=== PATIENT | male | born 1945 ===

== ENCOUNTER → 2018-03-14 10:02 | Day surgery (SDC) | payer MEDICARE ==
[~2018-03-14 10:02] MED LIST: Acetaminophen TAB* 325 MG PO PRN; Buffered Lidocaine 0.9% SYRIN* 5 ML/SYR SYRINGE ONE; Bupivacaine 0.25% SDV* 30 ML ONE; Ibuprofen TAB* 600 MG PO PRN; Lidocain 1% EPI 1:100,000 * 30 ML MDV ONE; Midazolam* 1 MG/ML 5 ML VIAL (5 MG) ONE; Mineral Oil Sterile, TOPICAL* 25 ML BTL ONE; Naloxone* 0.4 MG/ML 1 ML VIAL IV PRN; ceFAZolin 2 GM PREMIX (*) 2 GM/50 ML BAG IVPB ONE; fentaNYL* 50 MCG/ML 2 ML VIAL (100 MCG VIAL) ONE; oxyCODONE TAB* 5 MG TAB PO PRN
[2018-03-14] MEDS: Buffered Lidocaine 0.9% SYRIN* 5 ML/SYR SYRINGE INTRADERM ONE ×2 (11:04)
[2018-03-14 17:58] VITALS: BP 137/61
== END | disposition home or self-care (01) ==
LOC: OR 10:02
PROVIDERS: ATTEND Plastic Surgery
DX: L57.0 Actinic keratosis (principal); L90.5 Scar conditions and fibrosis of skin; I10 Essential (primary) hypertension; F17.210 Nicotine dependence, cigarettes, uncomplicated; M19.90 Unspecified osteoarthritis, unspecified site
CPT/HCPCS: 88305; 88331; 88332; A9270-GY; J0690; J2250; J3010